=== PATIENT | female | born 1950 | race Caucasian/White ===

== ENCOUNTER 2023-08-25 14:40 | Outpatient (AMB) | payer MEDICARE, OTHER, SELFPAY ==
--- NOTE | 2023-08-25 14:58 | MHC.OFFWIV ---
Intake Vital Signs 08/25/23 15:01 Height 5 ft 2 in Weight 155 lb BMI 28.3 BP 130/60 Blood Pressure Location Rt brachial Position Sitting Pulse 64 Pulse Source Pulse Oximeter Temp 97.6 F Temp Source Temporal Artery Scan Pulse Oximetry (%) 97 Oxygen Delivery Method Room Air Intake Visit Reasons: left ear ache (in lobby) Intake Note: PT is here today for lt ear ache started WED Patient Tobacco Use Status: Never used Tobacco Allergies No Known Allergies Allergy (Verified 08/25/23 15:02) Do you need a note to return to daycare/school/sports/work: No HPI HPI Comments History of Present Illness Details This is a 73-year-old female who presented to the office complaining of a left earache x2 days. Patient denies any fevers or chills. She denies any additional URI symptoms. She is otherwise feeling well. [facility] Social History Patient Tobacco Use Status: Never used Tobacco Review of Systems Const All systems reviewed & are unremarkable except as noted in HPI and below Reports no additional complaints Eyes Reports no additional complaints ENT Reports no additional complaints Card Reports no additional complaints Resp Reports no additional complaints GI Reports no additional complaints Reports no additional complaints Musc Reports no additional complaints Skin/Breast Reports system reviewed and no additional complaints, except as documented Neuro Reports no additional complaints Psych Reports no additional complaints Endo Reports no additional complaints Khris/Lymph Reports no additional complaints Aller/Immun Reports no additional complaints Physical Exam Vital Signs: Last Vital Signs Temp 97.6 F 08/25/23 15:01 Pulse 64 08/25/23 15:01 BP 130/60 08/25/23 15:01 Pulse Ox 97 08/25/23 15:01 Oxygen Delivery Method Room Air 08/25/23 15:01 BMI result Body Mass Index 28.3 Const Other: Vital signs reviewed. Constitutional: Non-toxic appearing. No acute distress. Well-developed and well-nourished. HEENT: Normocephalic and atraumatic. There appears to be a foreign body such as cotton or ointment and patient's left external auditory canal. Her left external auditory canal is erythematous and edematous. Her right external auditory canal and tympanic membrane are within normal limits with the exception of some cerumen. Skin: Warm and dry. No rashes or lesions noted. Neck: Full and painless range of motion. No cervical lymphadenopathy. Cardio: Regular rate and rhythm. No murmurs, gallops, or rubs. No lower extremity edema. No JVD. Pulmonary: No respiratory distress. No accessory muscle usage. Clear to auscultation bilaterally without wheezing, crackles, or rhonchi. Gastrointestinal: Soft, nontender, and nondistended in all 4 quadrants. Normoactive bowel sounds in all 4 quadrants. Genitourinary: No CVA tenderness. Musculoskeletal: Normal range of motion in joints throughout the body. No deformity or other signs of injury. Neuro: Alert and oriented x4. Cranial nerves 2-12 grossly intact. No focal deficits appreciated. Psych: Normal mood and affect. Assessment & Plan Assessment & Plan (1) Foreign body of external ear: Code(s): S00.459A - Superficial foreign body of unspecified ear, initial encounter (2) Acute otitis externa: Code(s): H60.509 - Unspecified acute noninfective otitis externa, unspecified ear Plan This is a 73-year-old female presenting to the office complaining of a left earache x2 days. Upon physical examination, there appeared to be a foreign body such as cotton or paper or ointment in patient's left external auditory canal. Her ear was irrigated and the foreign body was removed. Patient does have some erythema and edema of her left external auditory canal consistent with acute otitis externa. She has been sent home on neomycin / polymyxin / hydrocortisone ear drops 4 times daily times 10 days. Patient advised to follow-up here proceed to the emergency room if she were the rule of persistent/worsening symptoms. Patient verbalizes her understanding and she is in agreement with the plan. Medications: New peugmgyj-vinwjaunz-AE 3.5-10,000-1 mg/mL-unit/mL-% 4 drps otic (ears) QID 10 mL 0RF 10 days Coding Level of Care Code Est Pt Level 3 (13550) Diagnoses Foreign body of external ear S00.459A Acute otitis externa H60.509
[2023-08-25 15:01] VITALS: BP 130/60; PULSE 64; TEMP 36.4; O2SAT 97; BMI 28.3
== END 2023-08-25 15:52 | disposition home or self-care (01) ==
PROVIDERS: PCP Internal Medicine; Visit Provider Physician Assistant Medical
DX: S00.459A Superficial foreign body of unspecified ear, initial encounter (principal); H60.502 Unspecified acute noninfective otitis externa, left ear
CPT/HCPCS: 99213